=== PATIENT | male | born 1945 | race Caucasian/White ===

== ENCOUNTER → 2023-05-08 10:05 | Outpatient (REF) | payer OTHER, SELFPAY | LOC: HWRAD 10:05 | PROVIDERS: ATTENDING PHYSICIAN Nurse Practitioner | DX: Z00.00 Encounter for general adult medical examination without abnormal findings (principal); M25.552 Pain in left hip | CPT/HCPCS: 73502 ==

== ENCOUNTER → 2023-06-11 12:36 | Outpatient (REF) | payer OTHER, SELFPAY | LOC: HWRCS 12:36 | PROVIDERS: ATTENDING PHYSICIAN Nurse Practitioner | DX: I10 Essential (primary) hypertension (principal); R60.0 Localized edema | CPT/HCPCS: 93306 ==

== ENCOUNTER → 2023-07-06 13:17 | Outpatient (REF) | payer OTHER, SELFPAY | LOC: RAD 13:17 | PROVIDERS: ATTENDING PHYSICIAN Nurse Practitioner | DX: R60.0 Localized edema (principal); I10 Essential (primary) hypertension | CPT/HCPCS: 93970 ==

== ENCOUNTER → 2024-11-18 10:04 | Outpatient (REF) | payer OTHER, SELFPAY | LOC: HWRAD 10:04 | PROVIDERS: ATTENDING PHYSICIAN Physician Assistant Medical | DX: R05.8 Other specified cough (principal) | CPT/HCPCS: 71046 ==

== ENCOUNTER 2024-12-10 13:13 | Emergency (ER) | payer OTHER, SELFPAY ==
[2024-12-10 13:23] VITALS: BP 180/101
[2024-12-10 13:51] LABS: Hematocrit 34.0 % (39.0-52.0); Hemoglobin 10.8 g/dL (13.0-18.0); Mean Corp Hgb Conc. 31.8 g/dL (33.0-37.0); Mean Corpuscular Volume 98.0 fL (80.0-94.0); Nucleated Red Blood Cells % 0 % (-); Platelet Count 259 10^3/uL (130-400); Red Cell Dist. Width 13.7 % (11.5-14.5)
[2024-12-10 14:05] LABS: ALT (SGPT) 36 U/L (0-50); AST (SGOT) 46 U/L (17-59); Albumin 4.6 g/dl (3.5-5.0); Alkaline Phosphatase 79 U/L (38-126); Blood Urea Nitrogen 18 mg/dl (9-20); Calcium 9.0 mg/dl (8.4-10.2); Carbon Dioxide 23 mmol/L (22-30); Chloride 104 mmol/L (98-107); Glucose 94 mg/dl (70-99); Potassium 3.7 mmol/L (3.5-5.1); Sodium 135 mmol/L (135-145); Total Protein 7.9 g/dl (6.3-8.2); eGFR 44.10
--- NOTE | 2024-12-10 15:15 | ED.GENMED ---
History of Present Illness
General
Chief Complaint: Abnormal Lab Value
Time Seen by Provider: 12/10/24 14:55
History of Present Illness
History of Present Illness:
78-year-old male with history of BPH presenting to the emergency department for concern of hydronephrosis. Patient presents from primary care doctor. Primary care doctor had noticed that patient's kidney function had increased so she sent him for
a PSA. He went to see urology and they said that he could follow-up in a year. He went back to the primary protection ultrasound of his kidneys and showed that he had severe hydronephrosis, BPH, urinary retention. He was sent to the ER for
further evaluation. Patient notes that he has been urinating only a little bit at a time, however denies significant pain to the abdomen. Denies ever needing a catheter for retention in the past. Denies fever. Denies additional medical complaints
Past History
Past History
ED Past Medical History: HTN and Hypercholesterolemia
Social History
Tobacco: Non-smoker
Alcohol: None
Drug: None
Personal:
Living: with family
Employment: Employed
Phy Exam
Physical Exam
Physical Exam:
General: Well-appearing, no clinical signs of dehydration, nontoxic and in no acute distress
HEENT: protecting airway
Neck: appears supple
CV: Normal heart rate, regular rhythm
Resp: No accessory muscle use, no increased work of breathing
Abd: Soft and non-distended status post Castellanos catheter placement, no tenderness to palpation
Extremities: No deformities, no swelling
Neuro: alert, no focal neurologic deficit
: deferred
Rectal: deferred
Psych: Normal affect
Skin: Intact
Course
Orders/Labs/Results
Orders:
Orders
12/10/24 13:26
EKG [Electrocardiogram (*1)] Urgent
Reason for Study: Fatigue / Weakness
EKG- Treatment ONCE
12/10/24 13:41
CMP [Comprehensive Metabolic Panel] Urgent
Complete Blood Count/With Diff Urgent
12/10/24 16:09
Urinalysis Urgent
Date Specimen was Collected: 12/10/24
Time Specimen was Collected: 15:38
Urine Microscopic Urgent
Date Specimen was Collected: 12/10/24
Time Specimen was Collected: 15:38
Abnormal Lab Results
12/10/24 12/10/24
13:41 16:09
RBC 3.47 L 10^6/uL
(4.70-6.10)
Hgb 10.8 L g/dL
(13.0-18.0)
Hct 34.0 L %
(39.0-52.0)
MCV 98.0 H fL
(80.0-94.0)
MCH 31.1 H pg
(27.0-31.0)
MCHC 31.8 L g/dL
(33.0-37.0)
Absolute Monos (auto) 0.7 H 10^3/uL
(0.1-0.6)
Creatinine 1.6 H mg/dL
(0.7-1.3)
Urine Occult Blood 4+ A
(Negative)
Urine RBC 3-6 A /HPF
(0-2)
Urine Bacteria Few A
(Negative)
Urine Albumin 1+ A
(Neg - Trace)
12/10/24 13:41
12/10/24 13:41
Vital Signs
Initial and Last Documented VS:
Initial Vital Signs
Temp Pulse Resp BP Pulse Ox
98.9 F 88 18 180/101 98
12/10/24 13:23 12/10/24 13:23 12/10/24 13:23 12/10/24 13:23 12/10/24 13:23
Last Documented Vital Signs
Temp Pulse Resp BP Pulse Ox
98.9 F 87 14 187/97 96
12/10/24 13:23 12/10/24 16:45 12/10/24 16:45 12/10/24 16:38 12/10/24 16:45
MDM/Problems Addressed
MDM/Problems Addressed:
78-year-old male with history of BPH presenting to the emergency concern of hydronephrosis and urinary retention. Vital signs are significant for high blood pressure.
On exam, patient is resting comfortably, however is status post Castellanos catheter insertion, completed by nursing staff due to retention of over 1000 cc of urine. Patient's ultrasound reviewed from today, bilateral hydronephrosis with BPH. Suspected
obstructive uropathy from BPH. Creatinine is 1.6 which is increased from prior. Likely acute kidney injury from obstructive uropathy. Will check urinalysis. Castellanos catheter is draining appropriately. Will consult with urology
17:50 -patient remains stable. Urine without sign of infection. Did discuss with urology, note appropriate for outpatient follow-up in 7 to 10 days for voiding trial. Did also let PCP aware of Castellanos catheter, and need for outpatient repeat of
creatinine. Otherwise patient stable for discharge. Strict return precautions were communicated to patient verbalized understanding
*Pulse Oximetry
SaO2: 98
Oxygen Mode of Delivery: Room air
Patient hypoxic: no
*Critical Care Note
Total Time (30-74mins, 75-104mins- exclusive of procedures): Not Applicable
ED Attending Note
-
Portions of this chart may have been created with voice recognition software.� Occasional wrong word or��sound alike� substitutions may have occurred due to the inherent limitations of voice recognition software.
Discharge Plan
Departure
Prescriptions:
No Action
lisinopril-hydrochlorothiazide 20 MG/25 MG tablet
1 tab PO DAILY
rosuvastatin [Crestor] 20 MG tablet
20 mg PO DAILY
hydrocodone-acetaminophen 1 TABLET tablet
1 tab PO Q4HPRN PRN (Reason: severe pain) Qty: 10 0RF
prednisone 50 MG tablet
50 mg PO DAILY Qty: 5 0RF
epinephrine [EpiPen] 0.3 MG/0.3/SYRINGE auto-injector
0.3 mg IM STAT! PRN (Reason: TROUBLE BREATHING/SWALLOWING) Qty: 2 0RF
Referrals:
Azul Espinosa CRNP [Family Provider, Family Practice]
Interventions
Interventions:
*Risk Screen - Suicide Last Done: 12/10/24 13:23
*General Assessment Last Done: 12/10/24 13:23
*Neglect/Abuse Screening Last Done: 12/10/24 13:23
*ED- Fall Risk Assessment Last Done: 12/10/24 13:23
*ED COVID-19 Vaccine History Last Done: 12/10/24 13:23
*ED Influenza Vaccine History Last Done: 12/10/24 13:23
Discharge Date and Time
Print Language: CITIZEN [place]
[2024-12-10 16:35] LABS: Urine Character Clear (Clear)
[2024-12-10 16:38] VITALS: BP 187/97
[2024-12-10 17:00] VITALS: BP 185/157
[2024-12-10 17:13] LABS: Urine White Cell 0-2 /HPF (0-5)
[2024-12-10 18:00] VITALS: BP 178/95
== END 2024-12-10 18:27 | disposition home or self-care (01) ==
LOC: EMR 13:13
PROVIDERS: EMERGENCY PHYSICIAN Student in an Organized Health Care Education/Training Program; FAMILY PHYSICIAN Nurse Practitioner Family
DX: N13.9 Obstructive and reflux uropathy, unspecified (principal); N40.1 Benign prostatic hyperplasia with lower urinary tract symptoms; R33.8 Other retention of urine; I10 Essential (primary) hypertension; E78.00 Pure hypercholesterolemia, unspecified
CPT/HCPCS: 99284; 51702; 76770; 80053; 81003; 81015; 85025; 93005

== ENCOUNTER → 2024-12-16 11:11 | Outpatient (REF) | payer OTHER, SELFPAY | LOC: RAD 11:11 | PROVIDERS: ATTENDING PHYSICIAN Specialist; FAMILY PHYSICIAN Physician Assistant Medical | DX: N40.1 Benign prostatic hyperplasia with lower urinary tract symptoms (principal); R97.20 Elevated prostate specific antigen [PSA] | CPT/HCPCS: 76775 ==

== ENCOUNTER → 2024-12-20 11:02 | Outpatient (REF) | payer OTHER, SELFPAY | LOC: MRI 3T 11:02 | PROVIDERS: ATTENDING PHYSICIAN Specialist; FAMILY PHYSICIAN Nurse Practitioner | DX: R97.20 Elevated prostate specific antigen [PSA] (principal); N40.1 Benign prostatic hyperplasia with lower urinary tract symptoms | CPT/HCPCS: 72197; A9575 ==

== ENCOUNTER 2025-01-06 06:32 | Day surgery (SDC) | payer OTHER, SELFPAY | END 2025-01-06 08:43 | disposition home or self-care (01) | LOC: GI 06:32 | PROVIDERS: ATTENDING PHYSICIAN Surgery | DX: Z12.11 Encounter for screening for malignant neoplasm of colon (principal); K57.30 Diverticulosis of large intestine without perforation or abscess without bleeding; D12.3 Benign neoplasm of transverse colon; D12.0 Benign neoplasm of cecum | CPT/HCPCS: 45385; 88305 ==